=== PATIENT | female | born 1955 | race Caucasian/White ===

== ENCOUNTER → 2023-05-17 12:44 | Outpatient (REF) | payer MEDICARE, OTHER, SELFPAY | LOC: MRI 3T 12:44 | PROVIDERS: ATTENDING PHYSICIAN Internal Medicine Gastroenterology; FAMILY PHYSICIAN Nurse Practitioner Adult Health | DX: K86.89 Other specified diseases of pancreas (principal) | CPT/HCPCS: 74183; A9575 ==

== ENCOUNTER → 2023-06-01 14:06 | Outpatient (REF) | payer MEDICARE, OTHER, SELFPAY | LOC: HWRAD 14:06 | PROVIDERS: ATTENDING PHYSICIAN Otolaryngology; FAMILY PHYSICIAN Nurse Practitioner Adult Health | DX: H92.02 Otalgia, left ear (principal) | CPT/HCPCS: 70486 ==

== ENCOUNTER 2023-09-13 17:44 | Emergency (ER) | payer MEDICARE, OTHER, SELFPAY ==
[2023-09-13 17:49] VITALS: BP 188/76
[2023-09-13 18:15] VITALS: BP 155/135
[2023-09-13 18:22] VITALS: BMI 29.3
[2023-09-13 18:25] VITALS: BP 173/69
--- NOTE | 2023-09-13 18:39 | ED.GENMED ---
History of Present Illness
General
Chief Complaint: Blood Pressure Problem
Time Seen by Provider: 09/13/23 18:21
History of Present Illness
History of Present Illness:
Patient presents to the emergency department with elevated blood pressure and headaches. Notes that she has had headaches for months. She has been checking her blood pressure for the past week and notes consistently high blood pressures. Today it
was elevated so she went to the urgent care. States her headache is moderate currently left-sided and radiates to her forehead. No radiation into the neck. There is no photophobia or phonophobia. No light sensitivity. Headache was not
thunderclap and typically responds well to Motrin. She is more concerned about her blood pressure
Past History
Past History
ED Past Medical History: HTN, Valvular disease and Other (Previous valve surgery at age 15)
ED Past Surgical History: Other
Patient has exhibited threatening behavior?: No
PSI?: No
Social History
Tobacco: Non-smoker
Alcohol: Occasional
Drug: None
Personal: Single
Living: alone
Employment: Employed
Family History
Family History: Negative Diabetes, Hypertension or CAD
Phy Exam
Physical Exam
Physical Exam:
GENERAL APPEARANCE: NAD, well developed/ well nourished
EYES lids/conjunctiva normal
EARS/NOSE/THROAT Mucous membranes moist, uvula midline without oral pharyngeal erythema, exudate or swelling
HEAD/NECK normocephalic atraumatic, neck is supple, no temporal artery ttp
RESPIRATORY respiratory effort normal, speaks in full sentences, no accessory muscle use. Lungs clear to auscultation without rhonchi, wheezes, rales
CARDIAC Regular rate and rhythm, no edema.
ABDOMINAL Soft, ND/NT. No pulsatile masses on exam, rebound tenderness, Quigley sign or pain over Mcburney's point.
MUSCLES/EXTREMITIES No abnormal range of motion, no swelling.
SKIN Warm, pink and dry. No rashes
NEUROLOGICAL Speech is clear and appropriate. CN2-12 intact, speech normal. Normal level of consciousness. 5/5 strength in all extremities. SILT throughout. no dysmetria or ataxia
PSYCH Normal mood and affect. Judgement/competence is appropriate
Course
Orders/Labs/Results
Orders:
Orders
09/13/23 18:35
0.9% Sodium Chloride 1000 ml [Nss] 1,000 ml IV BOLUS
Diphenhydramine [Benadryl] 25 mg IV NOW STA
Prochlorperazine [Compazine] 5 mg IV NOW STA
09/13/23 18:38
Amlodipine [Norvasc] 5 mg PO ONCE ONE
09/13/23 19:27
Basic Metabolic Panel Urgent
Complete Blood Count/With Diff Urgent
Abnormal Lab Results
09/13/23
19:27
RBC 4.04 L 10^6/uL
(4.20-5.40)
Hct 33.5 L %
(37.0-47.0)
MPV 10.6 H fL
(7.4-10.4)
09/13/23 19:27
09/13/23 19:27
Vital Signs
Initial and Last Documented VS:
Initial Vital Signs
Temp Pulse Resp BP Pulse Ox
98.2 F 69 17 188/76 97
09/13/23 17:49 09/13/23 17:49 09/13/23 17:49 09/13/23 17:49 09/13/23 17:49
Last Documented Vital Signs
Temp Pulse Resp BP Pulse Ox
98.0 F 58 20 140/90 98
09/13/23 19:15 09/13/23 20:40 09/13/23 20:40 09/13/23 21:15 09/13/23 21:15
*Critical Care Note
Total Time (30-74mins, 75-104mins- exclusive of procedures): Not Applicable
ED Attending Note
ED Attending Note
ED Attending Note:
Patient with hypertension and headache. Headache does not appear acute in nature and has no clinical aspects to suggest subarachnoid, meningitis, intracranial emergency. Will treat headache, check basic labs and continue to monitor.
-
Portions of this chart may have been created with voice recognition software.� Occasional wrong word or��sound alike� substitutions may have occurred due to the inherent limitations of voice recognition software.
Discharge Plan
Departure
Patient Disposition: Home (Routine Discharge)
Date of Disposition: 09/13/23
Time of Disposition: 20:31
Patient with high blood pressure during this ER visit?: Yes
Discharge Problem:
Hypertension
Instructions: High Blood Pressure (DC)
Prescriptions:
New
amlodipine 5 mg tablet
5 mg PO DAILY Qty: 14 0RF
No Action
rosuvastatin 10 MG tablet
10 mg PO HS
sertraline [Zoloft] 100 mg Tablet
150 mg PO HS
bupropion HCl [Wellbutrin XL] 300 mg Tablet Extended Release 24 Hr
300 mg PO DAILY
trazodone
50 mg PO HS
Referrals:
Michelle Nava CRNP [Family Provider] -
Activity Restrictions/Additional Instructions:
Follow-up with your primary doctor for continued blood pressure management. Return to the emergency department with severe symptoms such as headache,chest pain, difficulty breathing, severe abdominal pain
Interventions
Interventions:
*Risk Screen - Suicide Last Done: 09/13/23 17:49
*General Assessment Last Done: 09/13/23 17:49
*Neglect/Abuse Screening Last Done: 09/13/23 18:22
ED- Fall Risk Assessment Last Done: 09/13/23 19:15
*ED COVID-19 Vaccine History Last Done: 09/13/23 18:22
*Nursing Disposition Last Done: 09/13/23 21:15
ED- Cardiac Assessment Last Done: 09/13/23 19:15
ED- Neurological Assessment Last Done: 09/13/23 19:15
ED- Pulmonary Assessment Last Done: 09/13/23 19:15
Discharge Date and Time
Discharge Date/Time: 09/13/23 21:15
Print Language: CHINESE
[2023-09-13 19:15] VITALS: BP 170/70
[2023-09-13 19:34] LABS: % Basophils 0.5 % (0-2); % Eosinophils 1.7 % (0-6); % Immature Granulocytes 0.4 % (0-0.5); % Lymphocytes 29.2 % (20.5-51.1); % Monocytes 6.5 % (1.7-9.3); % Neutrophils 61.7 % (42.2-75.2); Absolute Eosinophils 0.1 10^3/uL (0-0.7); Absolute Lymphocytes 2.3 10^3/uL (1.2-3.4); Absolute Monocytes 0.5 10^3/uL (0.1-0.6); Absolute Neutrophils 4.8 10^3/uL (1.4-6.5); Hematocrit 33.5 % (37.0-47.0); Hemoglobin 12.2 g/dL (12.0-16.0); Mean Corp Hgb Conc. 36.4 g/dL (33.0-37.0); Mean Corpuscular Hgb 30.2 pg (27.0-31.0); Mean Corpuscular Volume 82.9 fL (81.0-99.0); Mean Platelet Volume 10.6 fL (7.4-10.4); Nucleated Red Blood Cells % 0 %; Platelet Count 214 10^3/uL (130-400); Red Blood Cell Count 4.04 10^6/uL (4.20-5.40); Red Cell Dist. Width 12.9 % (11.5-14.5); White Blood Cell Count 7.8 10^3/uL (4.8-10.8)
[2023-09-13] MEDS: COMPAZINE 5 MG IV (19:34)
[2023-09-13] MEDS: BENADRYL 25 MG IV (19:34)
[2023-09-13] MEDS: NORVASC 5 MG PO (19:35)
[2023-09-13] MEDS: NSS 1000 IV (19:35)
[2023-09-13 19:49] LABS: Blood Urea Nitrogen 14 mg/dl (7-17); Calcium 9.6 mg/dl (8.4-10.2); Carbon Dioxide 26 mmol/L (22-30); Chloride 105 mmol/L (98-107); Estimated Creatinine Clearance 80 ml/min; Glucose 96 mg/dl (70-99); Potassium 3.8 mmol/L (3.5-5.1); Sodium 139 mmol/L (135-145); eGFR > 60.00
[2023-09-13 20:40] VITALS: BP 148/78
[2023-09-13 21:15] VITALS: BP 140/90
== END 2023-09-13 21:15 | disposition home or self-care (01) ==
LOC: EMR 17:44
PROVIDERS: EMERGENCY PHYSICIAN Emergency Medicine; FAMILY PHYSICIAN Nurse Practitioner Adult Health
DX: R51.9 Headache, unspecified (principal); I10 Essential (primary) hypertension; I38 Endocarditis, valve unspecified
CPT/HCPCS: 99284; 96374; 96375; 96361; 80048; 85025

== ENCOUNTER → 2023-12-21 14:18 | Outpatient (REF) | payer MEDICARE, OTHER, SELFPAY | LOC: WDC 14:18 | PROVIDERS: ATTENDING PHYSICIAN Obstetrics & Gynecology; FAMILY PHYSICIAN Nurse Practitioner Adult Health | DX: Z13.820 Encounter for screening for osteoporosis (principal); M81.0 Age-related osteoporosis without current pathological fracture; Z12.31 Encounter for screening mammogram for malignant neoplasm of breast | CPT/HCPCS: 77063; 77067 ==

== ENCOUNTER → 2024-04-10 10:12 | Outpatient (REF) | payer MEDICARE, OTHER, SELFPAY ==
--- NOTE | 2024-04-10 11:06 | CARDSERVLU ---
Echocardiogram with [facility] completed after protocol screening completed. Allergies verified.
Patent IV site: _Left metacarpal 22 G PC____
IV site flushed with 0.9% NaCl pre and post administration.
Diluted bolus method utilized to enhance visualization of ventricular ellison.
Total volume given: __3__ mL
Patient tolerated all procedures well without complications.
Heplock D/C ed at 1105, site clear, no redness, no edema. Pressure held, no bleeding. 2x2 applied and taped. Pt offers no complaints.
== END ==
LOC: RCS 10:12
PROVIDERS: ATTENDING PHYSICIAN Student in an Organized Health Care Education/Training Program; FAMILY PHYSICIAN Nurse Practitioner Adult Health
DX: Q24.3 Pulmonary infundibular stenosis (principal)
CPT/HCPCS: 93306; Q9950

== ENCOUNTER → 2025-01-11 09:28 | Outpatient (REF) | payer MEDICARE, OTHER, SELFPAY | LOC: WDC 09:28 | PROVIDERS: ATTENDING PHYSICIAN Obstetrics & Gynecology; FAMILY PHYSICIAN Nurse Practitioner Adult Health | DX: N64.4 Mastodynia (principal) | CPT/HCPCS: 76642; 77062; 77066 ==